=== PATIENT | female | born 1980 | race American Indian/Alaskan Native ===

== ENCOUNTER 2020-07-24 18:59 | Emergency (ER) | payer SELFPAY ==
[2020-07-24 19:41] LABS: Basophils % (Auto) 0.3 % (0.0-1.8); Eosinophils % (Auto) 0.8 % (0.0-4.3); Hematocrit 31.7 % (30.3-42.9); Hemoglobin 9.9 gm/dl (10.1-14.3); Lymphocytes % (Auto) 33.5 % (13.4-35.0); Mean Corpuscular HGB Conc 31 % (30-34); Monocytes # (Auto) 0.4 K/mm3 (0.0-0.8); Monocytes % (Auto) 6.6 % (0.0-7.3); Platelet Count 464 K/mm3 (140-440); Red Blood Count 4.56 M/mm3 (3.65-5.03)
[2020-07-24 19:42] LABS: Mean Corpuscular Volume 70 fl (79-97); Red Cell Distribution Width 20.3 % (13.2-15.2)
[2020-07-24 19:56] LABS: Blood Urea Nitrogen 11 mg/dL (7-17); Calcium 8.2 mg/dL (8.4-10.2); Hemolysis Index 0
[2020-07-24 20:09] LABS: BUN/Creatinine Ratio 28
--- NOTE | 2020-07-24 20:17 | XRay Report ---
CHEST 1 VIEW INDICATION: Chest Pain COMPARISON: None FINDINGS: Support devices: None Heart: Normal Lungs/Pleura: No acute pulmonary or pleural findings. IMPRESSION: 1. No acute disease. Signer Name: Anmol Wood MD Signed: 07/24/2020 8:12 PM Workstation Name: [id number]
[2020-07-24] MEDS ORDERED: KETOROLAC 30 MG/1 ML INJ IM ONE (23:53)
--- NOTE | 2020-07-24 23:59 | Emergency Department Report ---
ED Chest Pain HPI - General Chief Complaint: Chest Pain Stated Complaint: CP Time Seen by Provider: 07/24/20 23:37 Source: patient Mode of arrival: Ambulatory Limitations: No Limitations - History of Present Illness Initial Comments: This is a 39-year-old female presents to the emergency department complaint of midsternal chest pain. Initially patient had this on Sunday, 3 days ago, but resolved. It started again earlier today and has been there since but the level of intensity has waxed and waned. Currently the patient says that the pain is 7 out of 10 in intensity. She denies any radiation. She denies any fever, shortness of breath, back pain, nausea, vomiting, diaphoresis, cough. She has not taken anything for symptoms prior to presentation. No recent travel or sick contacts at home. She denies any past medical history. She denies any tobacco or illicit drug use. She denies any family history of early cardiac disease or events. - Related Data Allergies Allergy/AdvReac Type Severity Reaction Status Date / Time No Known Allergies Allergy Unverified 07/24/20 19:19 Heart Score - HEART Score History: Slightly suspicious EKG: Normal Age: < 45 Risk factors: No known risk factors Troponin: < normal limit HEART Score: 0 - Critical Actions Critical Actions: 0-3 pts:0.9-1.7%risk of adverse cardiac event.Candidate for discharge ED Review of Systems ROS: Stated complaint: CP Other details as noted in HPI Comment: All other systems reviewed and negative Constitutional: denies: chills, fever Eyes: denies: eye pain, vision change ENT: denies: ear pain, throat pain Respiratory: denies: cough, shortness of breath Cardiovascular: chest pain. denies: palpitations Gastrointestinal: denies: abdominal pain, vomiting Genitourinary: denies: dysuria, discharge Musculoskeletal: denies: back pain, arthralgia Skin: denies: rash, lesions Neurological: denies: headache, weakness ED Past Medical Hx - Past Medical History Previous Medical History?: No - Surgical History Past Surgical History?: No - Social History Smoking Status: Never Smoker Substance Use Type: None ED Physical Exam - General Limitations: No Limitations - Other Other exam information: GENERAL: The patient is well-developed well-nourished. HENT: Normocephalic. Atraumatic. Patient has moist mucous membranes. EYES: Extraocular motions are intact. NECK: Supple. Trachea is midline. CHEST/LUNGS: Clear to auscultation. There is no respiratory distress noted. Chest pain is not reproducible to palpation of the chest wall. HEART/CARDIOVASCULAR: Regular. There is no tachycardia. There is no murmur. ABDOMEN: Abdomen is soft, nontender. Patient has normal bowel sounds. SKIN: Skin is warm and dry. NEURO: The patient is awake, alert, and oriented. The patient is cooperative. Normal speech. MUSCULOSKELETAL: There is no tenderness or deformity. ED Course Vital Signs 07/24/20 19:13 Temperature 98.4 F Pulse Rate 93 H Respiratory 18 Rate Blood Pressure 152/95 O2 Sat by Pulse 99 Oximetry STACIA score - Stacia Score Age > 65: (0) No Aspirin use within the Past 7 Days: (0) No 3 or more CAD Risk Factors: (0) No 2 or more Angina events in past 24 hrs: (1) Yes Known CAD with more than 50% Stenosis: (0) No Elevated Cardiac Markers: (0) No ST Deviation Greater than 0.5mm: (0) No STACIA Score: 1 ED Medical Decision Making - Lab Data Result diagrams: 07/24/20 19:28 07/24/20 19:28 - EKG Data -: EKG Interpreted by Ne EKG shows normal: sinus rhythm, axis, intervals, QRS complexes, ST-T waves Rate: normal - EKG Data When compared to previous EKG there are: previous EKG unavailable Interpretation: normal EKG - Radiology Data Radiology results: image reviewed interpreted by me: Chest x-ray does not show any acute process. There are no pleural effusions, obvious pneumonia and there is no pneumothorax. No significant cardiomegaly. - Medical Decision Making This patient presents with midsternal chest pain that has been going on since earlier this morning. EKG does not show any morphology consistent with ST elevation myocardial infarction or any dysrhythmia. Chest x-ray does not show any pneumonia, pleural effusions, pneumothorax, focal consolidation, or any acute process. The patient's labs have been unremarkable including CBC, metabolic panel and negative troponins x3. She was given a shot of Toradol and upon reevaluation her chest pain has greatly improved, down to about a 3 out of 10 in intensity. She is low on the heart and STACIA score. Patient is low on the Wells score criteria negative for the pulmonary embolism rule out criteria. On top of that, the patient does not express any risk factors for thromboembolic events. Her vital signs have been reassuring throughout her ED course including being afebrile. For all these reasons the patient appears safe for discharge home at this time. Her contact information has been sent over to the [facility] [place], and someone from their office should be contacting her shortly for close outpatient follow-up as per hospitalist low risk chest pain protocol. In the meantime, the patient has been instructed to return to the emergency department with any worsening of her symptoms or with any acute distress. Critical Care Time: No Critical care attestation.: If time is entered above; I have spent that time in minutes in the direct care of this critically ill patient, excluding procedure time. ED Disposition Clinical Impression: Chest pain Qualifiers: Chest pain type: unspecified Qualified Code(s): R07.9 - Chest pain, unspecified Disposition: - TO HOME OR SELFCARE Is pt being admited?: No Condition: Stable Instructions: Chest Pain (ED) Additional Instructions: Please follow-up with a primary care physician in the next few days. I have sent your contact information to [facility] [place], and someone from their office should be contacting you shortly for close outpatient follow-up. Just in case, I have also given you a referral for one of the cardiologists from that group so that you can make an appointment if you are not contacted in the next few days. Return to the emergency department with any worsening of your symptoms, new or concerning symptoms not addressed during this current emergency department visit, or with any acute distress. Referrals: ELOISA RODRIGUEZ MD [Primary Care Provider] - 2-3 Days JULIAN TURNER MD [Staff Physician] - 2-3 Days Time of Disposition: 01:40
[2020-07-25 02:23] VITALS: BP 118/74
== END 2020-07-25 02:32 | disposition home or self-care (01) ==
LOC: EDBD → ED 18:59
DX: R07.89 Other chest pain (principal)
CPT/HCPCS: 36415; 71045; 80048; 84484; 84703; 85025; 93005; 96372; 99284; J1885